=== PATIENT | female | born 1980 ===

== ENCOUNTER 2017-12-01 18:58 | Inpatient (IN) | payer OTHER ==
[2017-12-01 20:06] VITALS: BMI 32.9
[2017-12-01] MEDS ORDERED: Oxytocin 30 UNIT 30 UNITS/500 ML BAG IV PRN (20:13)
[2017-12-01] MEDS ORDERED: Lactated Ringer's 1,000 ML IV SCH ×2 (20:15)
[2017-12-01] MEDS ORDERED: Oxytocin 30 UNIT 30 UNITS/500 ML BAG IV ONE (20:49)
[2017-12-01 21:52] LABS: BASO % 0.3 % (0.0-2.0); EOS # 0.3 K/uL (0.0-0.7); EOS % 2.8 % (0.0-4.0); HEMOGLOBIN 10.3 g/dL (11.0-16.0); LYMPH # 1.5 K/uL (1.0-4.3); LYMPH % 16.3 % (20.0-40.0); MEAN CELL VOLUME 78.9 fL (81.0-99.0); MEAN CORPUSCULAR HEMOGLOBIN 25.6 pg (27.0-31.0); MEAN CORPUSCULAR HGB CONC 32.4 g/dL (33.0-37.0); MEAN PLATELET VOLUME 10.6 fL (7.2-11.7); MONO # 0.7 K/uL (0.0-0.8); MONO % 7.2 % (0.0-10.0); NEUT % 73.4 % (50.0-75.0); RBC 4.02 Mil/uL (3.80-5.20); WHITE BLOOD COUNT 9.5 K/uL (4.8-10.8)
--- NOTE | 2017-12-01 21:54 | OBHP ---
Datetime: 12/01/2017 19:53 IP Adm Impression: Term, intrauterine ; No Active Labor; Intact Membranes IP Admit Plan: Admit to unit; Initiate labor protocol Admit Comment, IP Provider: 37 y.o. , LMP 01/30/17, LJ 12/09/17, EGA 38w 6d referred for managemn et of elevated BP: seen in priv OB's office earlier today - BP 130s/90s. (+) MAYA earlier today; none now. Denies BV, spots, RUQ or epigastric pain. care: Dr. 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 x 10 years. Fam Hx: Mother age 55 - heart condition. Father alive 65 - no med issues. P.E.: as above. Mildly obese, in NAD. Awake, alert, oriented to time, person and place. Assessment: 37 y.o. P1, 38w 6d, gestational HTN; no stigmata of pre-eclampsia. Category 1 tracin g. Cervical exam had been performed in the office earlier, per Dr. Branch 3-4cm dilated. To tihs end, a nticipate augmentation and AROM, with vaginal delivery. This was D/W patient who agrees. Plan: 1) Admit 2) NPO 3) IVFs 4) Admission labs 5) Continuous EFM 6) Pitocin 7) AROM 8) Possible pain medication 9) Anticipate vaginal delivery - as per, and discussed with , Dr. Branch Pelvic Type - PN: Not Done Extremities - PN: Normal Abdomen - PN: Normal Back - PN: Normal Breast - PN: Not Done Lungs - PN: Normal Heart - PN: Normal Thyroid - PN: Not Done Neurologic - PN: Normal HEENT - PN: Normal General - PN: Normal Presentation-Admit: Vertex FHR - Baseline A Provider: 140 Membranes, Provider: Intact Contraction Comments Provider: occasioal Comments, ACOG Physical Exam: Abdomen: Gravid. Soft. Non tender All other systems reviewed and are negative Gestation - Est Wks by US: 38w 6d IP Hx Assessment: The History has been Reviewed and is Current EGA AdmitDate IP: 38.6 Vital Signs Provider: Reviewed; Within Normal Limits IP Indication for Induction: Not Applicable IP Chief Complaint: Signs/Symptoms Gestational HTN NICHD Variability Prov Fetus A: Moderate 6-25bpm NICHD Accel Fetus A IP Provider: 15X15 FHR Category Provider Fetus A: Category I NICHD Decel Fetus A IP Provider: None Dilatation, Provider: 4 Effacement, Provider: 70 Station, Provider: -1 Genitourinary Exam: Not Done DTRs - PN: Not Done
--- NOTE | 2017-12-01 21:57 | OBADHP ---
Datetime: 12/01/2017 19:53 Admit Comment, IP Provider: Patient initially interviewed at approximately 1945 hours 37 y.o. , LMP 01/30/17, LJ 12/09/17, EGA 38w 6d referred for managemnet of elevated BP: seen in priv OB's office earlier today - BP 130s/90s. (+) MAYA earlier today; none now. Denies BV, spots, RUQ or epigastric pain. care: Dr. 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 x 10 years. Fam Hx: Mother age 55 - heart condition. Father alive 65 - no med issues. P.E.: as above. Mildly obese, in NAD. Awake, alert, oriented to time, person and place. Assessment: 37 y.o. P1, 38w 6d, gestational HTN; no stigmata of pre-eclampsia. Category 1 tracin g. Cervical exam had been performed in the office earlier, per Dr. Branch 3-4cm dilated. To tihs end, a nticipate augmentation and AROM, with vaginal delivery. This was D/W patient who agrees. Plan: 1) Admit 2) NPO 3) IVFs 4) Admission labs 5) Continuous EFM 6) Pitocin 7) AROM 8) Possible pain medication 9) Anticipate vaginal delivery - as per, and discussed with , Dr. Branch Pelvic Type - PN: Not Done Extremities - PN: Normal Abdomen - PN: Normal Back - PN: Normal Breast - PN: Not Done Lungs - PN: Normal Heart - PN: Normal Thyroid - PN: Not Done Neurologic - PN: Normal HEENT - PN: Normal General - PN: Normal Presentation-Admit: Vertex FHR - Baseline A Provider: 140 Membranes, Provider: Intact Contraction Comments Provider: occasioal Comments, ACOG Physical Exam: Abdomen: Gravid. Soft. Non tender All other systems reviewed and are negative Gestation - Est Wks by US: 38w 6d IP Hx Assessment: The History has been Reviewed and is Current Vital Signs Provider: Reviewed; Within Normal Limits IP Chief Complaint: Signs/Symptoms Gestational HTN NICHD Variability Prov Fetus A: Moderate 6-25bpm NICHD Accel Fetus A IP Provider: 15X15 FHR Category Provider Fetus A: Category I NICHD Decel Fetus A IP Provider: None Dilatation, Provider: 4 Effacement, Provider: 70 Station, Provider: -1 Genitourinary Exam: Not Done DTRs - PN: Not Done EGA AdmitDate IP: 38.6 IP Adm Impression: Term, intrauterine ; No Active Labor; Intact Membranes IP Admit Plan: Admit to unit; Initiate labor protocol
[2017-12-01 22:04] LABS: SQUAMOUS EPITHIAL 11 /hpf (0-5); URINE BACTERIA RARE (<OCC); URINE BILIRUBIN NEGATIVE (NEGATIVE); URINE BLOOD NEGATIVE (NEGATIVE); URINE CLARITY Clear (Clear); URINE COLOR Yellow (YELLOW); URINE GLUCOSE (UA) NORMAL (Normal); URINE LEUKOCYTE ESTERASE NEG Leu/uL (Negative); URINE NITRATE NEGATIVE (NEGATIVE); URINE PROTEIN NEGATIVE (NEGATIVE); URINE UROBILINOGEN NORMAL mg/dL (0.2-1.0)
[2017-12-01 22:05] LABS: ALBUMIN 3.5 g/dL (3.5-5.0); ALT/SGPT 28 U/L (9-52); AST/SGOT 26 U/L (14-36); BLOOD UREA NITROGEN 9 mg/dL (7-17); CALCIUM 8.5 mg/dl (8.6-10.4); GFR AFRICAN-AMERICAN > 60; GFR NON-AFRICAN AMERICAN > 60
[2017-12-01] MEDS ORDERED: Bupivacaine HCl/FentaNYL Cit 100 ML EPI ONE (22:40)
--- NOTE | 2017-12-02 01:06 | OBPN ---
Datetime: 12/01/2017 19:53 IP Progress Impression: Normal progression of labor IP Progress Plan: Continue present management Membranes, Provider: Ruptured Amniotic Fluid Color, Provider: Clear Contraction Comments Provider: q2 FHR - Baseline A Provider: 140 Gestation - Est Wks by US: 38w 6d Presentation-Admit: Vertex IP Progress Note Comment: Cat 2 tracing due to rapid progression in labor, recovered to cat 2 no mor e decel, mod maik, anticipate delivery soon, allow labor down Vital Signs Provider: Reviewed; Within Normal Limits NICHD Accel Fetus A IP Provider: 15X15 FHR Category Provider Fetus A: Category I NICHD Variability Prov Fetus A: Moderate 6-25bpm Dilatation, Provider: 10 Effacement, Provider: 100 Station, Provider: 0 NICHD Decel Fetus A IP Provider: None
[2017-12-02] MEDS ORDERED: Lidocaine 2% Inj (20ml) ONE (03:47)
--- NOTE | 2017-12-02 04:19 | OBDS ---
DELIVERY PERSONNEL Delivery Doctor: DR ROBERT Scrmena Nurse: Hannah Hopkins Technical Product Manager: Alona Galvez RN Anesthesiologist: Martita Alatorre MD MATERNAL INFORMATION Delivery Anesthesia: Local; Epidural Medications in Delivery: pitocin 30 units IV Estimated Blood Loss (ml): 300 Provider Comments: delivery of head JETT followed by dystocia of right anterior shoulder, no traction done, nuchal cord loose x1, mc shoemaker, suprapubic pressure with no effect, posterior arm delivered followed by relief of dystocia and rest of delivery with pushing. left arm with grasp reflex and mov ing spontaneously, flexing normally. dysocia 30 seconds. LABOR SUMMARY EDC: 12/09/2017 00:00 No. Babies in Womb: 1 Attempted: No Labor Anesthesia: Epidural LABOR INFORMATION Onset of Labor: 12/01/2017 19:00 Complete Dilatation: 12/02/2017 00:54 Oxytocin: Augmentation Group B Beta Strep: Negative Steroids Given: None Reason Steroids Not Administered: Not Applicable MEMBRANES Membranes Rupture Method: Artificial Rupture of Membranes: 12/01/2017 21:45 Length of Rupture (hrs): 5.88 Amniotic Fluid Color: Bloody Amniotic Fluid Amount: Scant Amniotic Fluid Odor: Normal STAGES OF LABOR Stage 1 hrs: 5 Stage 1 min: 54 Stage 2 hrs: 2 Stage 2 min: 44 Stage 3 hrs: 0 Stage 3 min: 5 Total Time in Labor hrs: 8 Total Time in Labor min: 43 VAGINAL DELIVERY Episiotomy: None Laceration Extension: Second Degree Laceration Type: Perineal Laceration Repair: Yes Laceration Repair Note: 2-0 chromic repaired Initial Vag Sponge Count: 10+1Lap Final Vag Sponge Count: 10+1LAP Initial Vag Sharps Count: 0 Final Vag Sharps Count: 1 Sponge Count Correct: Yes; Vaginal Sweep Performed Sharps Count Correct: Yes Count Comment: vaginal sweep clear BABY A INFORMATION Delivery Date/Time: 12/02/2017 03:38 Method of Delivery: Vaginal Born in Route : No : N/A Forceps: N/A Vacuum Extraction: N/A Shoulder Dystocia : Yes SHOULDER DYSTOCIA BABY A Delivery of Head: 12/02/2017 03:37 Delivery Date/Time: 12/02/2017 03:38 Time Head to Delivery : 1.0 1st Intervention to Resolve: McRobert's Maneuver 2nd Intervention to Resolve: Suprapubic Pressure 3rd Intervention to Resolve: Posterior Arm Release Verify NO Fundal Pressure: No Fundal Pressure Applied Arm Under Symphisis at Del: Left PRESENTATION/POSITION BABY A Presentation: Cephalic Cephalic Presentation: Vertex Breech Presentation: N/A PLACENTA INFORMATION BABY A Placenta Delivery Time : 12/02/2017 03:43 Placenta Method of Delivery: Spontaneous Placenta Status: Delivered SCORES BABY A Heart Rate 1 min: >100 bpm Resp Effort 1 min: Good Cry Reflex Irritability 1 min: Cough or Sneeze or Pulls Away Muscle Tone 1 min: Active Motion Color 1 min: Body [place], Extremities Blue SCORE 1 MIN: 9 Heart Rate 5 min: >100 bpm Resp Effort 5 min: Good Cry Reflex Irritability 5 min: Cough or Sneeze or Pulls Away Muscle Tone 5 min: Active Motion Color 5 min: Body [place], Extremities Blue SCORE 5 MIN: 9 INFANT INFORMATION BABY A Gestational Age at Delivery: 39.0 Gestational Status: Term Infant Outcome : Liveborn Infant Condition : Stable Infant Sex: Male IDENTIFICATION/MEDS BABY A ID Band Number: [id number] ID Band Location: Left Leg; Left Arm Sensor Applied: Yes Sensor Number: [id number] Sensor Location : Cord Clamp Vitamin K Given : Aquamephyton 1 mg IM; Left Thigh Erythromycin Given: Given Both Eyes WEIGHT/LENGTH BABY A Infant Birthweight (gms): 3730 Infant Weight (lb): 8 Weight (oz): 4 Length Inches: 20.00 Length cms: 50.8 CORD INFORMATION BABY A No. Cord Vessels: 3 Nuchal Cord : Around Neck x1, Loose Cord Blood Taken: Yes Suction: Mouth; Nose ASSESSMENT BABY A Complications: Other Infant Complications Other: IRREGULAR HEART RATE Physical Findings at Delivery: Within Normal Limits Respirations: Appears Normal Infant Care By: DR ACOSTA Transferred To: [facility]
[2017-12-02] MEDS ORDERED: Benzocaine/Menthol 20%-0.5% Topical Spray (60 ml) TOP PRN (04:23)
[2017-12-02] MEDS ORDERED: Oxycodone/Acetaminophen 5/325 mg Tab PO PRN (04:23)
[2017-12-02] MEDS: Multiple Vitamins Tab PO SCH (09:55)
[2017-12-03 07:20] LABS: BASO # 0.1 K/uL (0.0-0.2); BASO % 0.5 % (0.0-2.0); EOS # 0.3 K/uL (0.0-0.7); EOS % 2.4 % (0.0-4.0); HEMOGLOBIN 10.3 g/dL (11.0-16.0); LYMPH # 1.9 K/uL (1.0-4.3); LYMPH % 17.7 % (20.0-40.0); MEAN CELL VOLUME 79.7 fL (81.0-99.0); MEAN CORPUSCULAR HEMOGLOBIN 26.3 pg (27.0-31.0); MEAN PLATELET VOLUME 10.5 fL (7.2-11.7); MONO # 0.6 K/uL (0.0-0.8); MONO % 5.3 % (0.0-10.0); NEUT % 74.1 % (50.0-75.0); RBC 3.93 Mil/uL (3.80-5.20); RED CELL DISTRIBUTION WIDTH 18.8 % (11.5-14.5); WHITE BLOOD COUNT 10.9 K/uL (4.8-10.8)
[2017-12-03] MEDS: Multiple Vitamins Tab PO SCH (09:53)
--- NOTE | 2017-12-03 17:28 | OBPPN ---
Datetime: 12/03/2017 17:26 PP Pain Prov: Within normal limits PP Nausea Prov: Denies PP Flatus Prov: Yes PP Breasts Prov: Normal PP Heart Prov: Normal PP Lungs Prov: Normal PP Abdomen/Uterus Prov: Normal PP Lochia Prov: Normal PP Vulva/Perineum Prov: Normal PP CVA Tenderness Prov: Normal PP Extremities Prov: Normal PP Impression Prov: Normal progression PP Plan Prov: Continue present management PP Progress Note Prov: discussed discharge plan if stabl etomorrow Vital Signs Provider PP: Reviewed
--- NOTE | 2017-12-03 17:30 | OBDCSUM ---
Datetime: 12/03/2017 17:27 Discharged to, Provider: Home Follow up at, Provider: Jose Carlos Patel Instr Activity: Normal activity Disch Instr Diet: Regular Discharge Instructions, Provider: Routine instructions given Discharge Diagnosis, Provider: Term Delivered Discharge Time: 12/04/2017 17:27 Follow up in weeks, Provider: 1wk Disch Referrals: None Contraception discussed, Prov: Yes Disch Activity Restrictions: No exercising; No lifting; No driving; Minimize walking; Minimize stair -climbing; No sexual activity; Nothing in vagina - [place], tampons, douche
[2017-12-04] MEDS ORDERED: Influenza Vaccine 60 mcg/0.5 mL SYR (4YR UP) IM ONE (09:16)
[2017-12-04] MEDS: Multiple Vitamins Tab PO SCH (09:18)
[2017-12-04 18:34] VITALS: BP 109/67; PULSE 68; RESP 20; TEMP 97.9; O2SAT 100
== END 2017-12-04 12:30 | disposition home or self-care (01) | DRG 775 ==
LOC: C.EROB 18:58 → C.4D 20:06 → EDBD 20:06 → C.4M 12-02 05:15
PROVIDERS: ADMIT Obstetrics & Gynecology; ATTEND Obstetrics & Gynecology
PROC: 10E0XZZ Delivery of Products of Conception, External Approach (ICD-10-PCS; principal; 2017-12-02)
PROC: 0KQM0ZZ Repair Perineum Muscle, Open Approach (ICD-10-PCS; 2017-12-02)
DX: O13.4 Gestational [pregnancy-induced] hypertension without significant proteinuria, complicating childbirth (principal); O69.81X0 Labor and delivery complicated by cord around neck, without compression, not applicable or unspecified; O99.02 Anemia complicating childbirth; O70.1 Second degree perineal laceration during delivery; Z3A.39 39 weeks gestation of pregnancy; Z37.0 Single live birth